=== PATIENT | male | born 1940 | race Caucasian/White ===

== ENCOUNTER 2017-05-20 11:17 | Day surgery (SDC) | payer MEDICARE, BC ==
[2017-05-20] MEDS ORDERED: FENTANYL PF 100MCG/2ML VIAL IV ONE (11:18)
[2017-05-20] MEDS ORDERED: LIDOCAINE 2% MDV (20MG/ML) 20ML VIAL IV ONE (11:18)
[2017-05-20] MEDS ORDERED: PROPOFOL 10 MG/ML VIAL IV ONE (11:18)
--- NOTE | 2017-05-21 12:30 | Operative Note ---
DATE OF SURGERY: 05/20/2017 OPERATION: ESOPHAGOGASTRODUODENOSCOPY with biopsy. PREOPERATIVE DIAGNOSIS: Dysphagia and heartburn. POSTOPERATIVE DIAGNOSES: 1. 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 2. Erosive gastritis. PROCEDURE: After informed consent was obtained from the patient, he was placed in the left lateral decubitus position in the endoscopy suite, sedated and monitored by the department of anesthesia. Once sedated, a well-lubricated [id number] gastroscope was placed in the posterior oropharynx and under direct visualization passed to the proximal esophagus. The endoscope was advanced through the proximal, mid, and distal esophagus. The GE junction demonstrated moderate- to large-caliber stricture and associated ulcerations as well as a small hiatal hernia. The stricture was traversed without difficulty. The gastric body demonstrated adherent flecks of heme throughout the body and fundus. The antrum demonstrated patchy erythema. The duodenal bulb and sweep were unremarkable. J-turn views of the proximal stomach revealed a small hiatal hernia and the aforementioned adherent heme. The endoscope was straightened. Gastric body/antral biopsies were obtained. The endoscope was removed from the patient with no new findings noted. Dilation was not performed at this time due to the ulcerations that were seen. RECOMMENDATIONS: I would like the patient to take omeprazole 40 mg twice per day and we will bring him back in 2 months to assess the ulcers as well as to perform a dilation should the stricture remain persistent and problematic. As always, thank you for allowing me to participate in the healthcare of your patients. CC: Dr. Erik OLIVAREZ
== END 2017-05-20 13:07 | disposition home or self-care (01) ==
LOC: HOP 11:17
PROVIDERS: ATTEND Internal Medicine Gastroenterology
DX: R13.10 Dysphagia, unspecified (principal); R12 Heartburn; K22.10 Ulcer of esophagus without bleeding; K22.2 Esophageal obstruction; K44.9 Diaphragmatic hernia without obstruction or gangrene; K29.60 Other gastritis without bleeding; I10 Essential (primary) hypertension; E78.00 Pure hypercholesterolemia, unspecified; J45.909 Unspecified asthma, uncomplicated
CPT/HCPCS: 43235; 00740; 88305; J3010

== ENCOUNTER 2017-07-22 10:08 | Day surgery (SDC) | payer MEDICARE, BC ==
[2017-07-22] MEDS ORDERED: LIDOCAINE 2% MDV (20MG/ML) 20ML VIAL IV ONE (10:09)
[2017-07-22] MEDS ORDERED: PROPOFOL 10 MG/ML VIAL IV ONE (10:09)
[2017-07-22] MEDS ORDERED: FENTANYL PF 100MCG/2ML VIAL IV ONE (10:09)
--- NOTE | 2017-07-23 13:31 | Operative Note ---
DATE OF SURGERY: 07/22/2017 OPERATION: ESOPHAGOGASTRODUODENOSCOPY with biopsy. PREOPERATIVE DIAGNOSIS: Follow up for GE junction ulceration and erosive gastritis. POSTOPERATIVE DIAGNOSES: 1. Hiatal hernia with large-caliber stricture and irregular Z line. 2. Healed gastric erosions. PROCEDURE: After informed consent was obtained from the patient, he was placed in the left lateral decubitus position in the endoscopy suite, sedated and monitored by the department of anesthesia. Once sedated, a well-lubricated [id number] gastroscope was placed in the posterior oropharynx and under direct visualization passed to the proximal esophagus. The endoscope was advanced through the proximal, mid, and distal esophagus. The GE junction demonstrated healing of the ulcerative and erosive changes previously seen. There was a large-caliber stricture and a proximal migrating columnar tongue. The gastric body and antrum were inspected. There were mild erythematous changes in the antrum, and the pylorus was patulous but otherwise unremarkable. The duodenal bulb and sweep were unremarkable. J-turn views of the proximal stomach revealed a small hiatal hernia but no other abnormalities. The endoscope was straightened. The proximal columnar tongue was biopsied. No excessive bleeding was noted. The endoscope was removed from the patient with no new findings noted. RECOMMENDATIONS: The patient should resume his medications and diet. As he is having no dysphagia at this time, dilation was not performed. As always, thank you for allowing me to participate in the healthcare of your patients. CC: Dr. Peg OLIVAREZ
== END 2017-07-22 13:00 | disposition home or self-care (01) ==
LOC: HOP 10:08
PROVIDERS: ATTEND Internal Medicine Gastroenterology
DX: K22.11 Ulcer of esophagus with bleeding (principal); K29.60 Other gastritis without bleeding; K44.0 Diaphragmatic hernia with obstruction, without gangrene; K31.89 Other diseases of stomach and duodenum; K22.70 Barrett's esophagus without dysplasia; I10 Essential (primary) hypertension; J45.909 Unspecified asthma, uncomplicated; E78.00 Pure hypercholesterolemia, unspecified
CPT/HCPCS: 43235; 00731; 88305; 88313; J3010